=== PATIENT | male | born 1960 | race Caucasian/White ===

== ENCOUNTER 2022-09-01 16:28 | Emergency (ER) | payer BC ==
[2022-09-01 16:46] VITALS: BP 123/78; PULSE 64
[2022-09-01] MEDS: Lidocaine 1% 10 ML MDV INJECT ONE (19:50)
[2022-09-01] MEDS: Sulfamethoxazole/Trimethoprim 800-160 MG Tab PO ONE (20:04)
[2022-09-01] MEDS: Clindamycin HCl 150 MG Cap PO ONE (20:04)
== END 2022-09-01 20:12 | disposition home or self-care (01) ==
LOC: DL.ED 16:28
DX: S61.052A Open bite of left thumb without damage to nail, initial encounter (principal); Z88.0 Allergy status to penicillin; Z88.5 Allergy status to narcotic agent; Z88.8 Allergy status to other drugs, medicaments and biological substances; Z79.82 Long term (current) use of aspirin; Z79.899 Other long term (current) drug therapy; Z86.16 Personal history of COVID-19; W54.0XXA Bitten by dog, initial encounter
CPT/HCPCS: 12001; 99283; A9270

== ENCOUNTER 2025-03-17 05:28 | Day surgery (SDC) | payer BC, MEDICARE ==
[2025-03-17] MEDS ORDERED: Propofol 200 MG/20 ML SDV IV ONE (05:29)
[2025-03-17] MEDS ORDERED: Lidocaine 2% 20 ML MDV NERVRT ONE (05:29)
[2025-03-17] MEDS ORDERED: Lactated Ringers 300 ML IV ONE (05:29)
[2025-03-17] MEDS: Lactated Ringers 1,000 ML IV SCH (05:54)
[2025-03-17 07:51] VITALS: BP 144/88; PULSE 60
== END 2025-03-17 08:19 | disposition home or self-care (01) ==
LOC: DL.ENDO 05:28
PROVIDERS: ATTEND Internal Medicine Gastroenterology
DX: K51.90 Ulcerative colitis, unspecified, without complications (principal); E78.5 Hyperlipidemia, unspecified; Z88.0 Allergy status to penicillin; Z88.8 Allergy status to other drugs, medicaments and biological substances
CPT/HCPCS: 00811; 45380; 88305; J2003; J2704; J7120